=== PATIENT | female | born 1965 | race American Indian/Alaskan Native ===

== ENCOUNTER 2018-06-08 07:27 | Emergency (ER) | END 2018-06-08 08:06 | disposition home or self-care (01) ==

== ENCOUNTER 2019-06-26 12:10 | Emergency (ER) | payer OTHER ==
[~2019-06-26] VITALS: Ht 167.6 cm; Wt 146.6 kg
[~2019-06-26 12:10] MED LIST: ACET-141 PO; AMOX1TAB10 PO; ARIP10TA12 PO; ATOR40TA68 PO; AUG875 PO; CITA40TA6 PO; FERR-55 PO; FLUT9.9S NASAL; IBUP-1561 PO; LEVE100018 PO; LORA10TA3 PO; MIRT15TA PO; MTF1000T PO; OMEP40CA38 PO; PSEU30TA38 PO; TAMS-14 PO; TOPI200T8 PO; TRAM50TA2 PO
[2019-06-26 12:48] VITALS: BP 117/63; PULSE 82; RESP 20; Ht 167.6 cm; Wt 146.6 kg
== END 2019-06-26 12:50 | disposition home or self-care (01) ==
LOC: E/R 12:10
DX: M25.511 Pain in right shoulder (principal); M25.531 Pain in right wrist; E11.9 Type 2 diabetes mellitus without complications; F17.210 Nicotine dependence, cigarettes, uncomplicated; E66.01 Morbid (severe) obesity due to excess calories; Z68.43 Body mass index [BMI] 50.0-59.9, adult; Z79.84 Long term (current) use of oral hypoglycemic drugs